=== PATIENT | female | born 1955 | race Caucasian/White ===

== ENCOUNTER 2016-11-29 05:27 | Day surgery (SDC) | payer MEDICAID ==
[2016-11-29] MEDS ORDERED: Sodium Chloride 0.9% 10 ML Syringe FLUSH PRN (06:00)
[2016-11-29] MEDS ORDERED: Dextrose 5%-0.45% NaCl 1,000 ML IV SCH (06:00)
[2016-11-29] MEDS ORDERED: fentaNYL 100 MCG/2 ML SDV ONE (06:15)
[2016-11-29] MEDS ORDERED: Midazolam 1 MG/ML 2 ML SDV ONE (06:15)
[2016-11-29] MEDS ORDERED: fentaNYL 100 MCG/2 ML SDV IV ONE ×3 (07:00→15:55)
[2016-11-29] MEDS ORDERED: Midazolam 1 MG/ML 2 ML SDV IV ONE ×3 (07:01→15:55)
[2016-11-29 09:41] VITALS: BP 107/85
--- NOTE | 2016-11-29 12:32 | OR ---
DATE: 11/29/2016 PROCEDURE: Esophagogastroduodenoscopy, NBI, and multiple pinch biopsies. INSTRUMENT USED: GIF-H180 Olympus video panendoscope. PREMEDICATIONS: No oral topical anesthesia used. Fentanyl 100 mcg intravenous. Versed 2 mg intravenous. Nasal 2 L O2 cannula. The procedure was done under pulse oximetry, BP recording, and cardiac exercise specialist. 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 Biopsies to be obtained for dysplasia, endoscopic hemostasis therapy if needed. DESCRIPTION OF PROCEDURE: The scope was passed with ease. Adequate visualization of the esophagus was made from proximal to distal areas. No upper esophageal lesions identified. No distal esophageal stricture. No uphill or downhill esophageal varices. No Peace-[place]vall[place] tear. Sliding hiatal hernia was noted. Proximally encroaching pink columnar epithelium was noted at 32 cm distal to the oral verge, NBI views were obtained. 4 quadrant biopsies were taken at 2 cm distance apart and sent for any histopathologic evidence of dysplasia. No proximal gastric varices noted. Gastric fundus examination by retroflexion showed no malignant lesions. Diminutive benign gastric polyps were noted in the fundus as well as in the antrum. No gastric ulcer, malignant mass, or vascular ectasia identified. Duodenal bulb showed no ulcer. Visualized second part of the duodenum was unremarkable. Multiple pinch biopsies were taken from the diminutive gastric antral polyps and sent for histopathology. No bleeding was noted from any of the visualized areas at the completion of examination. Photographs were taken of the duodenal bulb, gastric antrum, fundus, and distal esophagus. IMPRESSION: 1. Diminutive gastric polyps. 2. Sliding hiatal hernia. 3. Torres esophagus. The patient tolerated the procedure well. [facility] /[id number]
== END 2016-11-29 09:16 | disposition home or self-care (01) ==
LOC: DL.ENDO 05:27
PROVIDERS: ATTEND Internal Medicine Gastroenterology
DX: K22.70 Barrett's esophagus without dysplasia (principal); K31.7 Polyp of stomach and duodenum; K44.9 Diaphragmatic hernia without obstruction or gangrene; K21.0 Gastro-esophageal reflux disease with esophagitis; F32.9 Major depressive disorder, single episode, unspecified; E03.9 Hypothyroidism, unspecified
CPT/HCPCS: 43239; J2250; J3010; J7042

== ENCOUNTER 2019-11-27 06:10 | Day surgery (SDC) | payer MEDICAID ==
[~2019-11-27 06:10] MED LIST: Dextrose 5%-0.45% NaCl 1,000 ML IV SCH; Sodium Chloride 0.9% 10 ML Syringe FLUSH PRN
[2019-11-27] MEDS ORDERED: fentaNYL 100 MCG/2 ML SDV IV ONE ×3 (06:11→07:28)
[2019-11-27] MEDS ORDERED: Midazolam 1 MG/ML 2 ML SDV IV ONE ×3 (06:11→07:29)
[2019-11-27] MEDS ORDERED: fentaNYL 100 MCG/2 ML SDV ONE (06:31)
[2019-11-27] MEDS ORDERED: Midazolam 1 MG/ML 2 ML SDV ONE (06:31)
--- NOTE | 2019-11-27 08:40 | OR ---
DATE: 11/27/2019 PROCEDURES: Esophagogastroduodenoscopy, NBI and multiple pinch biopsies. INSTRUMENT USED: GIF-HQ190 Olympus video panendoscope. PREMEDICATIONS: No oral or topical anesthesia used. Fentanyl 100 mcg intravenous, Versed 2 mg intravenous. Nasal O2 cannula. The procedure was done under pulse oximetry, BP recording, and color television console monitor. INDICATION: The patient with known Torres's esophagus, on long-term PPI. Surveillance esophagogastroduodenoscopy is performed for detection of any active erosive lesions, biopsies to be obtained for any evidence of dysplasia and/or malignancy, endoscopic hemostasis therapy if needed. DESCRIPTION OF PROCEDURE: The scope was passed with ease. Adequate visualization of the esophagus was made from proximal to distal areas. No upper esophageal lesions identified. Distal esophagus was found to be a bit narrow, but the tip of the scope was passed with ease to visualize the gastric mucosa. No uphill or downhill esophageal varices. No Peace-[place]vall[place] tear. No evidence of erosive esophagitis by Mora criteria. No esophageal polyp or tumor mass identified. Proximally encroaching pink columnar epithelium was noted at 28 cm distal to the oral verge. Sliding hiatal hernia was noted. NBI views were obtained. Four-quadrant biopsies were taken at 2 cm distance apart from the area 28 cm distal to the oral verge and sent for any histopathologic evidence of dysplasia and/or malignancy. No proximal gastric varices noted. Gastric fundus examination by retroflexion showed no malignant lesions. No gastric ulcer, malignant mass, or vascular ectasia identified. 3 to 5 mm sized numerous benign-appearing polyps were noted in the gastric body as well as in gastric antrum, photographs were taken. Multiple pinch biopsies were obtained and sent for histopathology. Duodenal bulb showed no ulcer. Visualized 2nd part of the duodenum was unremarkable. Photographs were taken of the duodenal bulb, gastric antrum, body, fundus as well as distal esophagus. No bleeding was noted from any of the visualized areas at the completion of examination. IMPRESSION: 1. Torres esophagus. 2. Sliding hiatal hernia. 3. Gastric polyps. The patient tolerated the procedure well. [facility] /[id number]
[2019-11-27 10:54] VITALS: BP 105/45; PULSE 70
== END 2019-11-27 10:09 | disposition home or self-care (01) ==
LOC: DL.ENDO 06:10
PROVIDERS: ATTEND Internal Medicine Gastroenterology
DX: K22.70 Barrett's esophagus without dysplasia (principal); K44.9 Diaphragmatic hernia without obstruction or gangrene; K29.00 Acute gastritis without bleeding; K29.50 Unspecified chronic gastritis without bleeding; K31.7 Polyp of stomach and duodenum; E66.09 Other obesity due to excess calories; E03.9 Hypothyroidism, unspecified; K21.9 Gastro-esophageal reflux disease without esophagitis; K75.81 Nonalcoholic steatohepatitis (NASH); Z68.31 Body mass index [BMI] 31.0-31.9, adult
CPT/HCPCS: 43239; J2250; J3010; J7042

== ENCOUNTER 2021-06-29 06:04 | Day surgery (SDC) | payer MEDICAID ==
[~2021-06-29 06:04] MED LIST changes: -Dextrose 5%-0.45% NaCl 1,000 ML IV SCH; +Midazolam 1 MG/ML 2 ML SDV ONE; -Sodium Chloride 0.9% 10 ML Syringe FLUSH PRN; +fentaNYL 100 MCG/2 ML SDV ONE
[2021-06-29] MEDS ORDERED: Midazolam 1 MG/ML 2 ML SDV IV ONE ×3 (06:05→07:59)
[2021-06-29] MEDS ORDERED: fentaNYL 100 MCG/2 ML SDV IV ONE ×3 (06:05→07:58)
[2021-06-29] MEDS ORDERED: Dextrose 5%-0.45% NaCl 1,000 ML IV SCH (06:30)
[2021-06-29] MEDS ORDERED: Sodium Chloride 0.9% 10 ML Syringe FLUSH SCH (09:00)
[2021-06-29 15:19] VITALS: BP 111/50; PULSE 83
[2021-09-20] MEDS ORDERED: Sodium Chloride 0.9% 10 ML Syringe FLUSH SCH (05:30)
[2021-09-20] MEDS ORDERED: Dextrose 5%-0.45% NaCl 1,000 ML IV SCH (05:30)
== END 2021-06-29 10:20 | disposition home or self-care (01) ==
LOC: DL.ENDO 06:04
PROVIDERS: ATTEND Internal Medicine Gastroenterology
DX: K31.7 Polyp of stomach and duodenum (principal); K22.70 Barrett's esophagus without dysplasia; K44.9 Diaphragmatic hernia without obstruction or gangrene; D50.9 Iron deficiency anemia, unspecified; E66.09 Other obesity due to excess calories; K21.9 Gastro-esophageal reflux disease without esophagitis; E03.9 Hypothyroidism, unspecified; F32.A Depression, unspecified; M81.0 Age-related osteoporosis without current pathological fracture; G47.00 Insomnia, unspecified; Z91.013 Allergy to seafood; Z91.018 Allergy to other foods; Z01.812 Encounter for preprocedural laboratory examination; Z20.822 Contact with and (suspected) exposure to COVID-19; Z68.32 Body mass index [BMI] 32.0-32.9, adult
CPT/HCPCS: 43239; 87077; 87635; J2250; J3010; J7042; U0002

== ENCOUNTER 2021-06-30 07:43 | Day surgery (SDC) | payer MEDICAID ==
[2021-06-30] MEDS ORDERED: Midazolam 1 MG/ML 2 ML SDV IV ONE ×5 (07:44→08:38)
[2021-06-30] MEDS ORDERED: fentaNYL 100 MCG/2 ML SDV IV ONE ×3 (07:44→08:14)
[2021-06-30] MEDS ORDERED: Dextrose 5%-0.45% NaCl 1,000 ML IV SCH (08:00)
[2021-06-30] MEDS ORDERED: Sodium Chloride 0.9% 1,000 ML IV ONE (09:48)
[2021-06-30 11:27] VITALS: BP 117/70; PULSE 80
== END 2021-06-30 11:10 | disposition home or self-care (01) ==
LOC: DL.ENDO 07:43
PROVIDERS: ATTEND Internal Medicine Gastroenterology
DX: D12.2 Benign neoplasm of ascending colon (principal); D12.4 Benign neoplasm of descending colon; D50.9 Iron deficiency anemia, unspecified; E66.09 Other obesity due to excess calories; K21.9 Gastro-esophageal reflux disease without esophagitis; K22.70 Barrett's esophagus without dysplasia; E03.9 Hypothyroidism, unspecified; F32.A Depression, unspecified; M81.0 Age-related osteoporosis without current pathological fracture; G47.00 Insomnia, unspecified; Z88.8 Allergy status to other drugs, medicaments and biological substances; Z79.899 Other long term (current) drug therapy; Z79.82 Long term (current) use of aspirin; Z91.013 Allergy to seafood; Z91.018 Allergy to other foods; Z68.32 Body mass index [BMI] 32.0-32.9, adult
CPT/HCPCS: 45385; J2250; J3010; J7030; J7042

== ENCOUNTER 2023-02-09 10:52 | Inpatient (IN) | payer MEDICAID ==
[2023-02-09] MEDS ORDERED: Polyethylene Glycol 3350 Powder 17 GM Packet PO PRN (12:07)
[2023-02-09] MEDS ORDERED: Acetaminophen 325 MG Tab PO PRN (12:07)
[2023-02-09] MEDS ORDERED: HYDROmorphone 0.5 MG/0.5 ML Syringe IVPUSH PRN (12:07)
[2023-02-09] MEDS ORDERED: Sodium Chloride 0.9% 10 ML Syringe FLUSH PRN (12:07)
[2023-02-09] MEDS ORDERED: Acetaminophen/oxyCODONE 325-5 MG Tab PO PRN (12:07)
[2023-02-09] MEDS ORDERED: Ondansetron 4 MG/2 ML SDV IVPUSH PRN (12:07)
[2023-02-09] MEDS ORDERED: Sennosides/Docusate Sodium 50-8.6 MG Tab PO PRN (12:07)
[2023-02-09] MEDS ORDERED: Magnesium Hydroxide 400 MG/5 ML Susp 30 ML Cup PO PRN (12:07)
[2023-02-09] MEDS ORDERED: hydrALAZINE 20 MG/ML SDV IVPUSH PRN (12:14)
[2023-02-09] MEDS ORDERED: Metoprolol Tartrate 5 MG/5 ML SDV IVPUSH PRN (12:14)
[2023-02-09] MEDS ORDERED: Non-Formulary Medication 1 Each (Alendronate [Fosamax] 70 MG/75 ML Bottle) PO SCH (12:15)
[2023-02-09] MEDS ORDERED: Aspirin 325 MG Tab.EC PO PRN (12:15)
[2023-02-09] MEDS ORDERED: Glucagon,Human Recombinant 1 MG Vial IM PRN (12:23)
[2023-02-09] MEDS ORDERED: 50% Dextrose in Water 50 ML Syringe IVPUSH PRN (12:23)
[2023-02-09] MEDS ORDERED: Acetaminophen 325 MG Tab PO ONE ×2 (12:59→17:30)
[2023-02-09] MEDS ORDERED: diphenhydrAMINE 50 MG/ML SDV IV ONE ×2 (12:59→17:30)
[2023-02-09] MEDS ORDERED: Dexamethasone 4 MG/ML SDV IVPUSH ONE ×2 (12:59→17:30)
[2023-02-09 13:55] LABS: PERCENT FE SATURATION 9.8 % (20.0-50.0)
[2023-02-09 14:27] LABS: T4 FREE 2.28 ng/dL (0.76-1.46)
[2023-02-09] MEDS ORDERED: traMADol 50 MG Tab PO PRN (16:03)
[2023-02-09] MEDS ORDERED: Albumin Human 25 GM in Premix Bag 1 BAG IV SCH (17:00)
[2023-02-09] MEDS: Potassium Chloride 10 MEQ Tab.ER PO SCH (17:28)
[2023-02-09] MEDS: Insulin Lispro 100 Units/ML 3 ML Vial SUBCUT SCH (17:29)
[2023-02-09] MEDS: Benzocaine/Cetylpyridinium/Menthol Lozenge MUCMEM PRN (18:43)
[2023-02-09] MEDS: Ferrous Sulfate 325 MG Tab PO SCH (20:25)
[2023-02-09] MEDS: Albumin Human 25 GM in Premix Bag 1 BAG IV SCH (20:25)
[2023-02-09] MEDS: Melatonin 3 MG Tab PO SCH (20:25)
[2023-02-09] MEDS: Albuterol/Ipratropium 3.0-0.5 MG/3 ML Neb Soln NEB PRN (20:32)
[2023-02-10] MEDS: Albumin Human 25 GM in Premix Bag 1 BAG IV SCH ×3 (02:40→16:50)
[2023-02-10] MEDS: Levothyroxine 112 MCG Tab PO SCH (05:56)
[2023-02-10] MEDS: Omeprazole 20 MG Cap.CR PO SCH (05:56)
[2023-02-10 06:42] LABS: BASOPHILS PERCENT AUTO 0.2 % (0.0-1.0); EOSINOPHILS PERCENT AUTO 0.2 % (1.0-3.0); HEMATOCRIT 23.7 % (37.0-47.0); HEMOGLOBIN 7.1 g/dL (12.0-16.0); LYMPHOCYTES PERCENT AUTO 15.2 % (20.5-50.1); MEAN CORPUSCULAR HEMOGLOBIN 24.5 pg (27.0-34.0); MEAN CORPUSCULAR VOLUME 81.7 fL (80-100); MONOCYTES PERCENT AUTO 5.1 % (2-8); NEUTROPHILS PERCENT AUTO 79.3 % (42.2-75.2); PLATELET COUNT,PLT 108 10^3/uL (150-450); WHITE BLOOD CELL COUNT,WBC 4.3 10^3/uL (5.0-10.0)
[2023-02-10 07:23] LABS: ALBUMIN 3.1 g/dL (3.4-5.0); ANION GAP 13.4 mEq/L (7-13); BILIRUBIN TOTAL 1.3 mg/dL (0.2-1.0); BUN/CREATININE RATIO 17.6 (No establ ref range); CALCIUM 8.3 mg/dL (8.5-10.1); CREATININE 0.91 mg/dL (0.55-1.02); EST CRCL DRUG DOSING (CG) 43.09 mL/min; POTASSIUM,K 3.4 mmol/L (3.5-5.1); PROTEIN TOTAL,TP 6.5 g/dL (6.4-8.2)
[2023-02-10 07:27] LABS: A/G RATIO 0.91
[2023-02-10] MEDS: Insulin Lispro 100 Units/ML 3 ML Vial SUBCUT SCH ×3 (08:43→17:52)
[2023-02-10] MEDS: Ferrous Sulfate 325 MG Tab PO SCH ×2 (09:22→21:09)
[2023-02-10] MEDS: Calcium Carbonate/Vitamin D3 1250 MG-5 MCG Tab PO SCH (09:22)
[2023-02-10] MEDS: Cyanocobalamin (Vitamin B12) 100 MCG Tab PO SCH (09:22)
[2023-02-10] MEDS: Escitalopram 10 MG Tab PO SCH (09:22)
[2023-02-10] MEDS: Benzocaine/Cetylpyridinium/Menthol Lozenge MUCMEM PRN (10:59)
[2023-02-10] MEDS: Potassium Chloride 10 MEQ Tab.ER PO SCH ×2 (11:18→17:54)
[2023-02-10 12:31] LABS: HEMATOCRIT 23.2 % (37.0-47.0)
[2023-02-10 12:36] LABS: HEMOGLOBIN 6.9 g/dL (12.0-16.0)
[2023-02-10] MEDS: Ascorbic Acid 500 MG Tab PO SCH (21:09)
[2023-02-10] MEDS: Melatonin 3 MG Tab PO SCH (21:09)
[2023-02-11] MEDS: Omeprazole 20 MG Cap.CR PO SCH (06:12)
[2023-02-11] MEDS: Levothyroxine 112 MCG Tab PO SCH (06:12)
[2023-02-11 06:38] LABS: BASOPHILS PERCENT AUTO 0.2 % (0.0-1.0); EOSINOPHILS PERCENT AUTO 2.7 % (1.0-3.0); HEMATOCRIT 25.6 % (37.0-47.0); HEMOGLOBIN 7.7 g/dL (12.0-16.0); LYMPHOCYTES PERCENT AUTO 17.8 % (20.5-50.1); MEAN CORPUSCULAR HEMOGLOBIN 25.2 pg (27.0-34.0); MEAN CORPUSCULAR HGB CONC 30.1 g/dL (33.0-35.0); MEAN CORPUSCULAR VOLUME 83.7 fL (80-100); MONOCYTES PERCENT AUTO 6.4 % (2-8); NEUTROPHILS PERCENT AUTO 72.9 % (42.2-75.2); PLATELET COUNT,PLT 108 10^3/uL (150-450); RED BLOOD CELL COUNT 3.06 10^6/uL (4.2-5.4); WHITE BLOOD CELL COUNT,WBC 6.3 10^3/uL (5.0-10.0)
[2023-02-11 07:00] LABS: ALBUMIN 3.1 g/dL (3.4-5.0); ANION GAP 10.5 mEq/L (7-13); BILIRUBIN TOTAL 1.4 mg/dL (0.2-1.0); BUN/CREATININE RATIO 26.3 (No establ ref range); CALCIUM 8.5 mg/dL (8.5-10.1); CREATININE 0.76 mg/dL (0.55-1.02); EST CRCL DRUG DOSING (CG) 51.59 mL/min; POTASSIUM,K 3.5 mmol/L (3.5-5.1)
[2023-02-11 07:01] LABS: A/G RATIO 1.07
[2023-02-11] MEDS: Insulin Lispro 100 Units/ML 3 ML Vial SUBCUT SCH ×3 (09:58→16:55)
[2023-02-11] MEDS: Ascorbic Acid 500 MG Tab PO SCH ×2 (09:59→20:38)
[2023-02-11] MEDS: Ferrous Sulfate 325 MG Tab PO SCH ×2 (10:00→20:38)
[2023-02-11] MEDS: Escitalopram 10 MG Tab PO SCH (10:00)
[2023-02-11] MEDS: Calcium Carbonate/Vitamin D3 1250 MG-5 MCG Tab PO SCH (10:00)
[2023-02-11] MEDS: Cyanocobalamin (Vitamin B12) 100 MCG Tab PO SCH (10:00)
[2023-02-11] MEDS: Potassium Chloride 10 MEQ Tab.ER PO SCH ×2 (10:00→17:19)
[2023-02-11] MEDS: Albuterol/Ipratropium 3.0-0.5 MG/3 ML Neb Soln NEB PRN (18:16)
[2023-02-11] MEDS: Melatonin 3 MG Tab PO SCH (20:38)
[2023-02-12] MEDS: Levothyroxine 112 MCG Tab PO SCH (05:50)
[2023-02-12] MEDS: Omeprazole 20 MG Cap.CR PO SCH (05:50)
[2023-02-12 06:31] LABS: BASOPHILS PERCENT AUTO 0.5 % (0.0-1.0); EOSINOPHILS PERCENT AUTO 2.8 % (1.0-3.0); HEMATOCRIT 24.7 % (37.0-47.0); HEMOGLOBIN 7.5 g/dL (12.0-16.0); LYMPHOCYTES PERCENT AUTO 22.8 % (20.5-50.1); MEAN CORPUSCULAR HEMOGLOBIN 25.5 pg (27.0-34.0); MEAN CORPUSCULAR HGB CONC 30.4 g/dL (33.0-35.0); MONOCYTES PERCENT AUTO 8.5 % (2-8); NEUTROPHILS PERCENT AUTO 65.4 % (42.2-75.2); PLATELET COUNT,PLT 116 10^3/uL (150-450); RED BLOOD CELL COUNT 2.94 10^6/uL (4.2-5.4); WHITE BLOOD CELL COUNT,WBC 5.7 10^3/uL (5.0-10.0)
[2023-02-12 06:54] LABS: ALBUMIN 2.9 g/dL (3.4-5.0); ANION GAP 10.1 mEq/L (7-13); BILIRUBIN TOTAL 1.1 mg/dL (0.2-1.0); BUN/CREATININE RATIO 31.6 (No establ ref range); CALCIUM 8.3 mg/dL (8.5-10.1); CREATININE 0.79 mg/dL (0.55-1.02); EST CRCL DRUG DOSING (CG) 49.63 mL/min; POTASSIUM,K 4.1 mmol/L (3.5-5.1); PROTEIN TOTAL,TP 5.8 g/dL (6.4-8.2)
[2023-02-12] MEDS: Potassium Chloride 10 MEQ Tab.ER PO SCH (08:39)
[2023-02-12] MEDS: Ferrous Sulfate 325 MG Tab PO SCH (08:39)
[2023-02-12] MEDS: Calcium Carbonate/Vitamin D3 1250 MG-5 MCG Tab PO SCH (08:39)
[2023-02-12] MEDS: Cyanocobalamin (Vitamin B12) 100 MCG Tab PO SCH (08:39)
[2023-02-12] MEDS: Insulin Lispro 100 Units/ML 3 ML Vial SUBCUT SCH ×2 (08:40→12:17)
[2023-02-12] MEDS: Ascorbic Acid 500 MG Tab PO SCH (08:40)
[2023-02-12] MEDS: Escitalopram 10 MG Tab PO SCH (08:40)
[2023-02-12] MEDS ORDERED: Lidocaine 1% 5 ML VIAL INJECT ONE (09:13)
[2023-02-12] MEDS ORDERED: cefTRIAXone 2 GM Vial IVPUSH ONE (11:15)
[2023-02-12 12:15] VITALS: BP 110/54; PULSE 86
== END 2023-02-12 14:16 | disposition home or self-care (01) | DRG 433 ==
LOC: DL.MS 10:52 → OBSVTOIN 12:15
PROVIDERS: ADMIT Internal Medicine; ATTEND Internal Medicine
PROC: 30233N1 Transfusion of Nonautologous Red Blood Cells into Peripheral Vein, Percutaneous Approach (ICD-10-PCS; 2023-02-09)
PROC: 30233N1 Transfusion of Nonautologous Red Blood Cells into Peripheral Vein, Percutaneous Approach (ICD-10-PCS; 2023-02-10)
PROC: 0W9G3ZZ Drainage of Peritoneal Cavity, Percutaneous Approach (ICD-10-PCS; principal; 2023-02-12)
DX: K74.60 Unspecified cirrhosis of liver (principal); R63.4 Abnormal weight loss; E44.0 Moderate protein-calorie malnutrition; K92.2 Gastrointestinal hemorrhage, unspecified; R18.8 Other ascites; E87.20 Acidosis, unspecified; J98.11 Atelectasis; R06.02 Shortness of breath; R60.1 Generalized edema; E87.6 Hypokalemia; I12.9 Hypertensive chronic kidney disease with stage 1 through stage 4 chronic kidney disease, or unspecified chronic kidney disease; E11.22 Type 2 diabetes mellitus with diabetic chronic kidney disease; G89.29 Other chronic pain; F41.9 Anxiety disorder, unspecified; F32.A Depression, unspecified; N18.30 Chronic kidney disease, stage 3 unspecified; M19.90 Unspecified osteoarthritis, unspecified site; E03.9 Hypothyroidism, unspecified; M54.50 Low back pain, unspecified; D50.9 Iron deficiency anemia, unspecified; D63.1 Anemia in chronic kidney disease; E78.5 Hyperlipidemia, unspecified; E11.65 Type 2 diabetes mellitus with hyperglycemia; E88.09 Other disorders of plasma-protein metabolism, not elsewhere classified; K42.9 Umbilical hernia without obstruction or gangrene; R16.1 Splenomegaly, not elsewhere classified; K80.20 Calculus of gallbladder without cholecystitis without obstruction; N94.89 Other specified conditions associated with female genital organs and menstrual cycle; K44.9 Diaphragmatic hernia without obstruction or gangrene; D69.6 Thrombocytopenia, unspecified; R94.6 Abnormal results of thyroid function studies; K63.5 Polyp of colon; Z98.890 Other specified postprocedural states; Z68.33 Body mass index [BMI] 33.0-33.9, adult; Z91.010 Allergy to peanuts; Z91.02 Food additives allergy status; Z88.8 Allergy status to other drugs, medicaments and biological substances; Z91.048 Other nonmedicinal substance allergy status; K21.9 Gastro-esophageal reflux disease without esophagitis; E66.9 Obesity, unspecified; Z87.81 Personal history of (healed) traumatic fracture; Z90.89 Acquired absence of other organs; F71 Moderate intellectual disabilities; Z79.82 Long term (current) use of aspirin; Z79.899 Other long term (current) drug therapy
CPT/HCPCS: 36415; 36430; 49083; 71045; 74176; 80053; 82272; 82306; 82607; 82947; 83540; 83550; 83735; 84439; 85014; 85018; 85025; 86850; 86900; 86901; 86920; 86922; 87070; 94010; 94060; 94640; 94667; 94668; A9270-GY; J0696; J1100; J1170; J1200; J1815-GY; J2405; J3490; J7620-GY; P9016; P9047

== ENCOUNTER 2023-11-30 05:13 | Day surgery (SDC) | payer MEDICAID ==
[2023-11-30] MEDS ORDERED: Midazolam 1 MG/ML 2 ML SDV IV ONE (05:14)
[2023-11-30] MEDS ORDERED: fentaNYL 100 MCG/2 ML SDV IV ONE (05:14)
[2023-11-30] MEDS ORDERED: 5% Dextrose and 0.2% Sodium Chloride 1,000 ML Bag IV ONE (06:00)
[2023-11-30] MEDS: Dextrose 5%-0.45% NaCl 1,000 ML IV SCH (06:00)
[2023-11-30] MEDS ORDERED: Midazolam 1 MG/ML 2 ML SDV ONE (06:07)
[2023-11-30] MEDS ORDERED: fentaNYL 100 MCG/2 ML SDV ONE (06:07)
[2023-11-30] MEDS: fentaNYL 100 MCG/2 ML SDV IV ONE ×2 (06:47→06:48)
[2023-11-30] MEDS: Midazolam 1 MG/ML 2 ML SDV IV ONE ×2 (06:48→06:49)
[2023-11-30] MEDS ORDERED: Dextrose 5%-0.45% NaCl 1,000 ML IV SCH (07:00)
[2023-11-30 09:06] VITALS: BP 126/70; PULSE 77
== END 2023-11-30 09:05 | disposition home or self-care (01) ==
LOC: DL.ENDO 05:13
PROVIDERS: ATTEND Internal Medicine Gastroenterology
DX: K22.70 Barrett's esophagus without dysplasia (principal); K31.7 Polyp of stomach and duodenum; K44.9 Diaphragmatic hernia without obstruction or gangrene; K76.6 Portal hypertension; K74.60 Unspecified cirrhosis of liver; E03.9 Hypothyroidism, unspecified; E66.9 Obesity, unspecified; Z68.29 Body mass index [BMI] 29.0-29.9, adult
CPT/HCPCS: 43239; J2250; J3010; J7799

== ENCOUNTER 2024-03-13 17:57 | Emergency (ER) | payer MEDICAID ==
[2024-03-13 18:10] VITALS: BP 138/75; PULSE 85
[2024-03-13 18:52] LABS: BASOPHILS PERCENT AUTO 0.7 % (0.0-1.0); EOSINOPHILS PERCENT AUTO 3.1 % (1.0-3.0); HEMATOCRIT 38.8 % (37.0-47.0); LYMPHOCYTES PERCENT AUTO 29.6 % (20.5-50.1); MEAN CORPUSCULAR HEMOGLOBIN 31.9 pg (27.0-34.0); MEAN CORPUSCULAR HGB CONC 33.5 g/dL (33.0-35.0); MEAN CORPUSCULAR VOLUME 95.3 fL (80-100); MONOCYTES PERCENT AUTO 9.3 % (2-8); NEUTROPHILS PERCENT AUTO 57.3 % (42.2-75.2); PLATELET COUNT,PLT 135 10^3/uL (150-450); RED BLOOD CELL COUNT 4.07 10^6/uL (4.2-5.4); WHITE BLOOD CELL COUNT,WBC 4.2 10^3/uL (5.0-10.0)
[2024-03-13 19:10] LABS: B-TYPE NATRIURETIC PEPTIDE,BNP 30 pg/ml (0-100)
[2024-03-13 19:15] LABS: INR 1.1 (0.9-1.2); PROTHROMBIN TIME 11.6 SEC (9.0-12.0); PTT,PARTIAL THROMBOPLSTIN TIME 23.3 SEC (22.0-34.0)
[2024-03-13 19:24] LABS: ALANINE AMINOTRANSFERASE,ALT 32 U/L (14-59); ALBUMIN 2.9 g/dL (3.4-5.0); ALKALINE PHOSPHATASE 100 U/L (46-116); ANION GAP 15.4 mEq/L (7-13); ASPARTATE AMNIOTRANSFERASE,AST 44 U/L (15-37); BILIRUBIN TOTAL 2.1 mg/dL (0.2-1.0); BLOOD UREA NITROGEN,BUN 17 mg/dL (7-18); CARBON DIOXIDE,CO2 23 mmol/L (21-32); CHLORIDE,CL 108 mmol/L (98-107); CREATINE KINASE,CK 178 U/L (16-191); CREATININE 1.06 mg/dL (0.55-1.02); GLUCOSE RANDOM 200 mg/dL (70-99); MAGNESIUM 1.8 mg/dL (1.8-2.4); POTASSIUM,K 3.4 mmol/L (3.5-5.1); PROTEIN TOTAL,TP 7.4 g/dL (6.4-8.2); SODIUM,NA 143 mmol/L (136-145); TSH ULTRASENSITIVE 0.77 uIU/mL (0.36-3.74)
[2024-03-13 19:25] LABS: A/G RATIO 0.64; ESTIMATED GFR 57 mL/min (>=60); LACTIC ACID 3.6 mmol/L (0.4-2.0)
[2024-03-13 19:48] LABS: APPEARANCE,URINE SLIGHTLY CLOUDY (CLEAR); BILIRUBIN,URINE NEGATIVE (NEGATIVE); COLOR,URINE YELLOW (YELLOW); GLUCOSE,URINE NEGATIVE (NEGATIVE); KETONES,URINE NEGATIVE (NEGATIVE); LEUKOCYTE ESTERASE,URINE NEGATIVE (NEGATIVE); NITRITE,URINE NEGATIVE (NEGATIVE); OCCULT BLOOD,URINE NEGATIVE (NEGATIVE); PROTEIN,URINE NEGATIVE (NEGATIVE)
[2024-03-13 19:50] LABS: AMPHETAMINES,URINE NEGATIVE (NEGATIVE); BARBITURATES,URINE NEGATIVE (NEGATIVE); BENZODIAZEPINE,URINE NEGATIVE (NEGATIVE); MDMA (ECSTASY), URINE NEGATIVE (NEGATIVE); METHADONE,URINE NEGATIVE (NEGATIVE); METHAMPHETAMINES,URINE NEGATIVE (NEGATIVE); OPIATES,URINE NEGATIVE (NEGATIVE); OXYCODONE,URINE NEGATIVE (NEGATIVE); PHENCYCLIDINE,URINE NEGATIVE (NEGATIVE); TCA,URINE NEGATIVE (NEGATIVE)
[2024-03-13] MEDS: Sodium Chloride 0.9% 10 ML Syringe FLUSH PRN (19:58)
[2024-03-13] MEDS: Sodium Chloride 0.9% 1,000 ML IV ONE (19:58)
== END 2024-03-13 21:54 ==
LOC: DL.ED 17:57
DX: R41.0 Disorientation, unspecified (principal); E11.22 Type 2 diabetes mellitus with diabetic chronic kidney disease; N18.9 Chronic kidney disease, unspecified; K21.9 Gastro-esophageal reflux disease without esophagitis; E03.9 Hypothyroidism, unspecified; E66.9 Obesity, unspecified; Z79.82 Long term (current) use of aspirin; Z79.899 Other long term (current) drug therapy; Z88.7 Allergy status to serum and vaccine; Z88.8 Allergy status to other drugs, medicaments and biological substances; Z91.018 Allergy to other foods; Z91.048 Other nonmedicinal substance allergy status; Z91.010 Allergy to peanuts
CPT/HCPCS: 36415; 70450; 80053; 80305-QW; 81003; 82550; 82947; 83605; 83735; 83880; 84145; 84443; 84484; 85025; 85610; 85730; 87040; 93005; 93010; 96360; 99284; 99285-25; J3490; J7030

== ENCOUNTER 2024-03-14 15:47 | Emergency (ER) | payer MEDICAID ==
[2024-03-14] MEDS ORDERED: Sodium Chloride 0.9% 10 ML Syringe FLUSH PRN (17:09)
[2024-03-14] MEDS: Iopamidol 755 Mg/ML 100 ML Bottle IV ONE (17:21)
[2024-03-14] MEDS ORDERED: Sodium Chloride 0.9% 1,000 ML IV ONE (17:22)
[2024-03-14 17:45] LABS: BASOPHILS PERCENT AUTO 1.2 % (0.0-1.0); EOSINOPHILS PERCENT AUTO 5.2 % (1.0-3.0); HEMATOCRIT 37.4 % (37.0-47.0); HEMOGLOBIN 12.6 g/dL (12.0-16.0); LYMPHOCYTES PERCENT AUTO 34.9 % (20.5-50.1); MEAN CORPUSCULAR HEMOGLOBIN 31.9 pg (27.0-34.0); MEAN CORPUSCULAR HGB CONC 33.7 g/dL (33.0-35.0); MEAN CORPUSCULAR VOLUME 94.7 fL (80-100); MONOCYTES PERCENT AUTO 11.6 % (2-8); NEUTROPHILS PERCENT AUTO 47.1 % (42.2-75.2); PLATELET COUNT,PLT 133 10^3/uL (150-450); RED BLOOD CELL COUNT 3.95 10^6/uL (4.2-5.4); WHITE BLOOD CELL COUNT,WBC 4.8 10^3/uL (5.0-10.0)
[2024-03-14 18:01] LABS: INR 1.1 (0.9-1.2); PROTHROMBIN TIME 11.1 SEC (9.0-12.0); PTT,PARTIAL THROMBOPLSTIN TIME 23.4 SEC (22.0-34.0)
[2024-03-14 18:08] LABS: LACTIC ACID 2.2 mmol/L (0.4-2.0)
[2024-03-14 18:13] LABS: A/G RATIO 0.66; ALANINE AMINOTRANSFERASE,ALT 32 U/L (14-59); ALBUMIN 2.7 g/dL (3.4-5.0); ALKALINE PHOSPHATASE 87 U/L (46-116); ANION GAP 11.4 mEq/L (7-13); ASPARTATE AMNIOTRANSFERASE,AST 46 U/L (15-37); BILIRUBIN TOTAL 1.7 mg/dL (0.2-1.0); BLOOD UREA NITROGEN,BUN 15 mg/dL (7-18); BUN/CREATININE RATIO 17.4 (No establ ref range); CALCIUM 9.1 mg/dL (8.5-10.1); CARBON DIOXIDE,CO2 26 mmol/L (21-32); CHLORIDE,CL 109 mmol/L (98-107); CREATININE 0.86 mg/dL (0.55-1.02); ESTIMATED GFR 74 mL/min (>=60); GLUCOSE RANDOM 115 mg/dL (70-99); MAGNESIUM 1.7 mg/dL (1.8-2.4); POTASSIUM,K 3.4 mmol/L (3.5-5.1); PROTEIN TOTAL,TP 6.8 g/dL (6.4-8.2); SODIUM,NA 143 mmol/L (136-145); TSH ULTRASENSITIVE 0.88 uIU/mL (0.36-3.74)
[2024-03-14 19:51] VITALS: BP 122/58; PULSE 74
== END 2024-03-14 23:04 | disposition home or self-care (01) ==
LOC: DL.ED 15:47
DX: R41.81 Age-related cognitive decline (principal); E86.0 Dehydration; E87.20 Acidosis, unspecified; K21.9 Gastro-esophageal reflux disease without esophagitis; M19.90 Unspecified osteoarthritis, unspecified site; E11.9 Type 2 diabetes mellitus without complications; E03.9 Hypothyroidism, unspecified; E66.9 Obesity, unspecified; Z88.7 Allergy status to serum and vaccine; Z91.010 Allergy to peanuts; Z91.02 Food additives allergy status; Z91.018 Allergy to other foods; Z91.048 Other nonmedicinal substance allergy status; Z79.890 Hormone replacement therapy; Z79.82 Long term (current) use of aspirin; Z79.899 Other long term (current) drug therapy
CPT/HCPCS: 36415; 70450; 70498; 71045; 80053; 83605; 83735; 84443; 84484; 85025; 85610; 85730; 93005; 96365; 99284; J3475; Q9967

== ENCOUNTER 2024-04-08 15:01 | Inpatient (IN) | payer MEDICAID ==
[2024-04-08 15:30] LABS: BASOPHILS PERCENT AUTO 0.6 % (0.0-1.0); EOSINOPHILS PERCENT AUTO 5.3 % (1.0-3.0); HEMOGLOBIN 12.9 g/dL (12.0-16.0); MEAN CORPUSCULAR HEMOGLOBIN 32.7 pg (27.0-34.0); MEAN CORPUSCULAR HGB CONC 34.9 g/dL (33.0-35.0); MEAN CORPUSCULAR VOLUME 93.7 fL (80-100); MONOCYTES PERCENT AUTO 9.2 % (2-8); NEUTROPHILS PERCENT AUTO 53.9 % (42.2-75.2); PLATELET COUNT,PLT 122 10^3/uL (150-450); RED BLOOD CELL COUNT 3.95 10^6/uL (4.2-5.4); WHITE BLOOD CELL COUNT,WBC 4.9 10^3/uL (5.0-10.0)
[2024-04-08 15:51] LABS: ALANINE AMINOTRANSFERASE,ALT 42 U/L (14-59); ALKALINE PHOSPHATASE 123 U/L (46-116); ANION GAP 13.6 mEq/L (7-13); ASPARTATE AMNIOTRANSFERASE,AST 43 U/L (15-37); BILIRUBIN TOTAL 1.2 mg/dL (0.2-1.0); BLOOD UREA NITROGEN,BUN 12 mg/dL (7-18); BUN/CREATININE RATIO 11.3 (No establ ref range); CALCIUM 8.9 mg/dL (8.5-10.1); CARBON DIOXIDE,CO2 23 mmol/L (21-32); CHLORIDE,CL 104 mmol/L (98-107); CREATININE 1.06 mg/dL (0.55-1.02); GLUCOSE RANDOM 162 mg/dL (70-99); INR 1.1 (0.9-1.2); POTASSIUM,K 3.6 mmol/L (3.5-5.1); PROTHROMBIN TIME 11.1 SEC (9.0-12.0); PTT,PARTIAL THROMBOPLSTIN TIME 25.7 SEC (22.0-34.0); SODIUM,NA 137 mmol/L (136-145)
[2024-04-08 15:54] LABS: A/G RATIO 0.75; C-REACTIVE PROTEIN < 0.50 ng/dL (<=0.50); ESTIMATED GFR 57 mL/min (>=60); ETHANOL BLOOD MEDICAL < 3 mg/dL (0); LACTIC ACID 1.4 mmol/L (0.4-2.0)
[2024-04-08 16:48] LABS: APPEARANCE,URINE CLEAR (CLEAR); BILIRUBIN,URINE NEGATIVE (NEGATIVE); COLOR,URINE YELLOW (YELLOW); GLUCOSE,URINE NEGATIVE (NEGATIVE); KETONES,URINE NEGATIVE (NEGATIVE); LEUKOCYTE ESTERASE,URINE NEGATIVE (NEGATIVE); NITRITE,URINE NEGATIVE (NEGATIVE); OCCULT BLOOD,URINE NEGATIVE (NEGATIVE); PROTEIN,URINE NEGATIVE (NEGATIVE)
[2024-04-08 16:53] LABS: AMPHETAMINES,URINE NEGATIVE (NEGATIVE); BARBITURATES,URINE NEGATIVE (NEGATIVE); BENZODIAZEPINE,URINE NEGATIVE (NEGATIVE); MDMA (ECSTASY), URINE NEGATIVE (NEGATIVE); METHADONE,URINE NEGATIVE (NEGATIVE); METHAMPHETAMINES,URINE NEGATIVE (NEGATIVE); OPIATES,URINE NEGATIVE (NEGATIVE); OXYCODONE,URINE NEGATIVE (NEGATIVE); PHENCYCLIDINE,URINE NEGATIVE (NEGATIVE); TCA,URINE NEGATIVE (NEGATIVE)
[2024-04-08] MEDS ORDERED: Albuterol/Ipratropium 3.0-0.5 MG/3 ML Neb Soln NEB PRN (18:45)
[2024-04-08] MEDS ORDERED: Ondansetron 4 MG/2 ML SDV IVPUSH PRN (18:45)
[2024-04-08] MEDS ORDERED: Acetaminophen 325 MG Tab PO PRN (18:45)
[2024-04-08] MEDS ORDERED: Ketorolac 30 MG/ML SDV IVPUSH PRN ×2 (18:45→19:44)
[2024-04-08] MEDS: Lactulose Soln 10 GM/15 ML 30 ML UD Cup PO ONE (18:49)
[2024-04-08] MEDS: Ferrous Sulfate 325 MG Tab PO SCH (21:25)
[2024-04-08] MEDS: Sodium Chloride 0.9% 10 ML Syringe FLUSH PRN (21:31)
[2024-04-08] MEDS ORDERED: 50% Dextrose in Water 50 ML Syringe IVPUSH PRN (21:47)
[2024-04-08] MEDS ORDERED: Glucagon,Human Recombinant 1 MG Vial IM PRN (21:47)
[2024-04-09] MEDS: Levothyroxine 100 MCG Tab PO SCH (04:57)
[2024-04-09 06:35] LABS: BASOPHILS PERCENT AUTO 0.7 % (0.0-1.0); EOSINOPHILS PERCENT AUTO 6.4 % (1.0-3.0); HEMATOCRIT 37.5 % (37.0-47.0); HEMOGLOBIN 12.9 g/dL (12.0-16.0); MEAN CORPUSCULAR HEMOGLOBIN 32.3 pg (27.0-34.0); MEAN CORPUSCULAR HGB CONC 34.4 g/dL (33.0-35.0); MONOCYTES PERCENT AUTO 9.1 % (2-8); NEUTROPHILS PERCENT AUTO 48.8 % (42.2-75.2); PLATELET COUNT,PLT 112 10^3/uL (150-450); RED BLOOD CELL COUNT 3.99 10^6/uL (4.2-5.4); WHITE BLOOD CELL COUNT,WBC 4.5 10^3/uL (5.0-10.0)
[2024-04-09 06:59] LABS: ALBUMIN 2.8 g/dL (3.4-5.0); ANION GAP 12.5 mEq/L (7-13); BILIRUBIN TOTAL 1.7 mg/dL (0.2-1.0); BUN/CREATININE RATIO 15.3 (No establ ref range); CALCIUM 9.1 mg/dL (8.5-10.1); CREATININE 0.98 mg/dL (0.55-1.02); EST CRCL DRUG DOSING (CG) 51.43 mL/min; MAGNESIUM 1.9 mg/dL (1.8-2.4); POTASSIUM,K 3.5 mmol/L (3.5-5.1); PROTEIN TOTAL,TP 6.5 g/dL (6.4-8.2)
[2024-04-09 07:01] LABS: A/G RATIO 0.76
[2024-04-09] MEDS: Insulin Lispro 100 Units/ML 3 ML Vial SUBCUT SCH (08:43)
[2024-04-09] MEDS: Omeprazole 20 MG Cap.CR PO SCH (08:44)
[2024-04-09] MEDS: Lactulose Soln 10 GM/15 ML 30 ML UD Cup PO SCH (08:44)
[2024-04-09] MEDS: Spironolactone 25 MG Tab PO SCH (08:44)
[2024-04-09] MEDS: Potassium Chloride 10 MEQ Tab.ER PO SCH (08:45)
[2024-04-09] MEDS ORDERED: Potassium Chloride 10 MEQ Tab.ER PO SCH (09:00)
[2024-04-09] MEDS ORDERED: Lactulose Soln 10 GM/15 ML 30 ML UD Cup PO SCH (09:00)
[2024-04-09] MEDS: Ferrous Sulfate 325 MG Tab PO SCH (12:32)
[2024-04-10 06:27] LABS: BASOPHILS PERCENT AUTO 0.6 % (0.0-1.0); EOSINOPHILS PERCENT AUTO 5.8 % (1.0-3.0); HEMATOCRIT 36.2 % (37.0-47.0); HEMOGLOBIN 12.6 g/dL (12.0-16.0); LYMPHOCYTES PERCENT AUTO 30.3 % (20.5-50.1); MEAN CORPUSCULAR HEMOGLOBIN 32.6 pg (27.0-34.0); MEAN CORPUSCULAR HGB CONC 34.8 g/dL (33.0-35.0); MEAN CORPUSCULAR VOLUME 93.8 fL (80-100); MONOCYTES PERCENT AUTO 8.3 % (2-8); PLATELET COUNT,PLT 111 10^3/uL (150-450); RED BLOOD CELL COUNT 3.86 10^6/uL (4.2-5.4); WHITE BLOOD CELL COUNT,WBC 5.2 10^3/uL (5.0-10.0)
[2024-04-10 08:35] LABS: ALBUMIN 2.7 g/dL (3.4-5.0); ANION GAP 12.8 mEq/L (7-13); BILIRUBIN TOTAL 1.2 mg/dL (0.2-1.0); BUN/CREATININE RATIO 22.1 (No establ ref range); CALCIUM 9.2 mg/dL (8.5-10.1); CREATININE 0.86 mg/dL (0.55-1.02); EST CRCL DRUG DOSING (CG) 58.61 mL/min; POTASSIUM,K 3.8 mmol/L (3.5-5.1); PROTEIN TOTAL,TP 6.4 g/dL (6.4-8.2)
[2024-04-10 08:36] LABS: A/G RATIO 0.73
[2024-04-10] MEDS: Midodrine 2.5 MG Tab PO ONE (11:16)
[2024-04-10] MEDS: Lactulose Soln 10 GM/15 ML 30 ML UD Cup PO SCH (11:16)
[2024-04-10] MEDS: Midodrine 5 MG Tab PO SCH (16:19)
[2024-04-10] MEDS: Metoclopramide 10 MG/2 ML SDV IV PRN (19:51)
[2024-04-10] MEDS: Melatonin 3 MG Tab PO PRN (20:00)
[2024-04-11 06:22] LABS: BASOPHILS PERCENT AUTO 0.7 % (0.0-1.0); EOSINOPHILS PERCENT AUTO 5.2 % (1.0-3.0); HEMATOCRIT 37.2 % (37.0-47.0); HEMOGLOBIN 12.8 g/dL (12.0-16.0); LYMPHOCYTES PERCENT AUTO 31.6 % (20.5-50.1); MEAN CORPUSCULAR HEMOGLOBIN 32.4 pg (27.0-34.0); MEAN CORPUSCULAR HGB CONC 34.4 g/dL (33.0-35.0); MEAN CORPUSCULAR VOLUME 94.2 fL (80-100); MONOCYTES PERCENT AUTO 9.1 % (2-8); NEUTROPHILS PERCENT AUTO 53.4 % (42.2-75.2); PLATELET COUNT,PLT 124 10^3/uL (150-450); RED BLOOD CELL COUNT 3.95 10^6/uL (4.2-5.4); WHITE BLOOD CELL COUNT,WBC 5.9 10^3/uL (5.0-10.0)
[2024-04-11 06:44] LABS: ALBUMIN 2.6 g/dL (3.4-5.0); ANION GAP 14.6 mEq/L (7-13); BILIRUBIN TOTAL 1.2 mg/dL (0.2-1.0); BUN/CREATININE RATIO 22.8 (No establ ref range); CREATININE 1.01 mg/dL (0.55-1.02); EST CRCL DRUG DOSING (CG) 49.91 mL/min; POTASSIUM,K 3.6 mmol/L (3.5-5.1); PROTEIN TOTAL,TP 6.3 g/dL (6.4-8.2)
[2024-04-11 06:45] LABS: A/G RATIO 0.7
[2024-04-12 05:56] LABS: BASOPHILS PERCENT AUTO 0.5 % (0.0-1.0); EOSINOPHILS PERCENT AUTO 5.4 % (1.0-3.0); HEMATOCRIT 38.6 % (37.0-47.0); HEMOGLOBIN 13.5 g/dL (12.0-16.0); LYMPHOCYTES PERCENT AUTO 27.2 % (20.5-50.1); MEAN CORPUSCULAR HEMOGLOBIN 32.7 pg (27.0-34.0); MEAN CORPUSCULAR VOLUME 93.5 fL (80-100); MONOCYTES PERCENT AUTO 10.4 % (2-8); NEUTROPHILS PERCENT AUTO 56.5 % (42.2-75.2); PLATELET COUNT,PLT 150 10^3/uL (150-450); RED BLOOD CELL COUNT 4.13 10^6/uL (4.2-5.4); WHITE BLOOD CELL COUNT,WBC 7.4 10^3/uL (5.0-10.0)
[2024-04-12 06:25] LABS: ALBUMIN 2.8 g/dL (3.4-5.0); ANION GAP 13.8 mEq/L (7-13); BUN/CREATININE RATIO 28.3 (No establ ref range); CALCIUM 8.5 mg/dL (8.5-10.1); CREATININE 0.92 mg/dL (0.55-1.02); EST CRCL DRUG DOSING (CG) 54.79 mL/min; POTASSIUM,K 3.8 mmol/L (3.5-5.1); PROTEIN TOTAL,TP 6.9 g/dL (6.4-8.2)
[2024-04-12 06:26] LABS: BILIRUBIN TOTAL 1.2 mg/dL (0.2-1.0)
[2024-04-12 06:30] LABS: A/G RATIO 0.68
[2024-04-12] MEDS: Ziprasidone Mesylate 20 MG Vial IM PRN (20:11)
[2024-04-12] MEDS: Ziprasidone Mesylate 20 MG Vial IM ONE (23:42)
[2024-04-13] MEDS: Lactulose Soln 10 GM/15 ML 30 ML UD Cup PO SCH (15:40)
[2024-04-13] MEDS ORDERED: QUEtiapine 100 MG Tab PO SCH (21:00)
[2024-04-13] MEDS: QUEtiapine 100 MG Tab PO SCH (21:05)
[2024-04-14 07:07] LABS: ALBUMIN 2.6 g/dL (3.4-5.0); ANION GAP 12.1 mEq/L (7-13); BILIRUBIN TOTAL 1.4 mg/dL (0.2-1.0); BUN/CREATININE RATIO 21.8 (No establ ref range); CALCIUM 8.2 mg/dL (8.5-10.1); CREATININE 0.87 mg/dL (0.55-1.02); EST CRCL DRUG DOSING (CG) 57.94 mL/min; MAGNESIUM 1.9 mg/dL (1.8-2.4); POTASSIUM,K 4.1 mmol/L (3.5-5.1); PROTEIN TOTAL,TP 6.3 g/dL (6.4-8.2)
[2024-04-14 07:10] LABS: A/G RATIO 0.7
[2024-04-16 08:59] LABS: HEMOGLOBIN A1C 6.2 % (<5.7)
[2024-04-16 12:51] VITALS: BP 122/52; PULSE 74
== END 2024-04-16 14:45 | DRG 443 ==
LOC: DL.ED 15:01 → DL.MS 16:47 → UNDOADMIN 16:47 → DL.MS 04-13 01:51
PROVIDERS: ADMIT Internal Medicine; ATTEND Internal Medicine
DX: K76.82 Hepatic encephalopathy (principal); K75.81 Nonalcoholic steatohepatitis (NASH); E11.9 Type 2 diabetes mellitus without complications; K74.60 Unspecified cirrhosis of liver; D69.59 Other secondary thrombocytopenia; K21.9 Gastro-esophageal reflux disease without esophagitis; M19.90 Unspecified osteoarthritis, unspecified site; Z91.018 Allergy to other foods; F41.9 Anxiety disorder, unspecified; Z88.8 Allergy status to other drugs, medicaments and biological substances; F32.A Depression, unspecified; E11.22 Type 2 diabetes mellitus with diabetic chronic kidney disease; E03.9 Hypothyroidism, unspecified; E66.9 Obesity, unspecified; I12.9 Hypertensive chronic kidney disease with stage 1 through stage 4 chronic kidney disease, or unspecified chronic kidney disease; E78.5 Hyperlipidemia, unspecified; N18.30 Chronic kidney disease, stage 3 unspecified; Z66 Do not resuscitate; E11.65 Type 2 diabetes mellitus with hyperglycemia; I95.9 Hypotension, unspecified; Z91.010 Allergy to peanuts; Z88.7 Allergy status to serum and vaccine; Z79.899 Other long term (current) drug therapy; Z79.82 Long term (current) use of aspirin; Z87.19 Personal history of other diseases of the digestive system; Z68.27 Body mass index [BMI] 27.0-27.9, adult; Z90.89 Acquired absence of other organs
CPT/HCPCS: 36415; 70450; 71045; 80053; 80305; 80307; 81003; 82140; 83605; 83735; 84145; 85025; 85610; 85730; 86140; 87040 ×2; 93005; 99285; C1758; 82947; 83036; 93010; 99223; 99232; 99233; 99238; A9270-GY; J1815-GY; J2765; J3486; J3490